=== PATIENT | female | born 1995 | race Caucasian/White ===

== ENCOUNTER 2017-03-26 20:34 | Observation (INO) | payer BC, OTHER ==
[~2017-03-26] VITALS: Ht 172.7 cm; Wt 111.1 kg
[2017-03-26] MEDS ORDERED: CAFFEINE/SODIUM BENZOATE 500 MG/2ML VIAL IV ONE (21:15)
[2017-03-26] MEDS ORDERED: TROKENDI PO (21:39)
[2017-03-26] MEDS ORDERED: [UNRECOGNIZED DRUG - OTHER] PO (21:39)
[2017-03-26] MEDS ORDERED: ADVAIR 100-501 EACH INH (21:39)
[2017-03-26] MEDS ORDERED: NARATRIPTAN HC2.5 MG PO (21:39)
[2017-03-26] MEDS ORDERED: ACETAZOLAMIDE250 MG PO (21:39)
[2017-03-26] MEDS: SODIUM CHLORIDE 0.9% 1000ML 1,000 ML IV SCH ×2 (21:47→22:31)
[2017-03-26] MEDS ORDERED: SODIUM CHLORIDE 0.9% 1000ML 1,000 ML IV SCH (23:29)
[2017-03-26] MEDS ORDERED: ONDANSETRON HCL INJ 2 MG/ML VIAL IV PRN (23:30)
[2017-03-26 23:51] LABS: BASOPHILS % 0.3 % (0.0-1.0); HEMATOCRIT 41.8 % (34.2-44.1); HEMOGLOBIN 14.4 g/dL (12.0-16.0); LYMPHOCYTES # (AUTO) 1.1 (1.0-3.2); LYMPHOCYTES % 9.8 % (18.0-39.1); MEAN CORPUSCULAR HEMOGLOBIN 30.3 pg (28-32); MEAN CORPUSCULAR HGB CONC 34.4 g/dL (31-35); MONOCYTES # (AUTO) 0.3 (0.2-0.8); MONOCYTES % 2.3 % (4.4-11.3); NEUTROPHILS # (AUTO) 9.9 (2.1-6.9); NEUTROPHILS % 87.3 % (38.7-80.0); PLATELET COUNT 283 x10e3/uL (140-360); RED BLOOD COUNT 4.75 x10e6/uL (3.6-5.1); RED CELL DISTRIBUTION WIDTH 12.5 % (11.7-14.4)
[2017-03-26 23:59] LABS: INR 0.98; PROTHROMBIN TIME 13.5 seconds (11.9-14.5)
[2017-03-27] VITALS (7 sets, daily range): BP systolic 91–124; BP diastolic 51–77
[2017-03-27] LABS: PARTIAL THROMBOPLASTIN TIME 28.5 seconds (23.8-35.5)
[2017-03-27 00:11] LABS: ANION GAP 10.9 mmol/L (8-16); BLOOD UREA NITROGEN 9 mg/dL (7-26); CALCIUM 8.7 mg/dL (8.4-10.2); CARBON DIOXIDE 19 mmol/L (22-29); CHLORIDE 113 mmol/L (98-107); GLUCOSE 101 mg/dL (74-118); POTASSIUM 3.9 mmol/L (3.5-5.1); SODIUM 139 mmol/L (136-145)
[2017-03-27 00:28] LABS: BUN/CREATININE RATIO 11 (6-25); CREATININE, SERUM 0.82 mg/dL (0.57-1.11); EST GLOMERULAR FILTRATION RATE > 60 ML/MIN (60-)
[2017-03-27] MEDS: SALMETEROL/FLUTICASONE 100/50 INH SCH ×2 (07:00→17:00)
[2017-03-27] MEDS: ACETAZOLAMIDE 250 MG TAB PO SCH ×2 (09:00→17:22)
--- NOTE | 2017-03-27 09:44 | History and Physical ---
This 21-year-old female comes in with headache. HISTORY OF PRESENT ILLNESS: Ms. Teague came in with intractable headache. She had a recent spinal tap and was found to have pseudotumor cerebri. The patient's headache is characterized as increased on getting up and walking after the spinal tap. The patient also complains of some nausea along with that. PAST MEDICAL HISTORY: History of recurrent headaches, which were gone for about the last 4 years and then recently started. That is why the spinal tap was ordered. The patient also went to an motor vehicle field representative who found her discs to be very enlarged and was recently diagnosed with pseudotumor cerebri. Otherwise, medical history of allergies. SURGICAL HISTORY: Noncontributory. SOCIAL HISTORY: No EtOH. No IV drug abuse. FAMILY HISTORY: Positive for history of pseudotumor cerebri in mother. REVIEW OF SYSTEMS: Negative for chest pain or shortness of breath. Positive for nausea. No vomiting. No diarrhea. No constipation. No rectal bleeding, hematochezia or hematemesis. Positive for headaches and positive for blurry vision. No diplopia. PHYSICAL EXAMINATION GENERAL: Alert and oriented times 3. VITALS: 98.4, pulse 72, respiratory rate 17, blood pressure 91/51. HEENT: Normocephalic and atraumatic. The pupils react to light and accommodation. CV: S1 and S2 normal, regular rate and rhythm. ABDOMEN: Nontender and nondistended. EXTREMITIES: No clubbing. No cyanosis. No edema. LABS: Everything normal, except for white count 11.3. IMAGING: Done on 02/04/2017 previous one was a normal MRI. ASSESSMENT: Spinal headache, status post spinal tap. Consult anesthesia for probable blood patch. The patient has been given the option of waiting it out for 1 to 2 weeks and resting or a blood patch. She will let us know. For right now, we will continue with all the medications that she is on including Diamox. Further recommendations per the clinical course. Job#: [id number]
[2017-03-27] MEDS: MORPHINE SULFATE 2 MG/ML SYR IV PRN ×2 (22:30)
[2017-03-28] VITALS: BP 106/54
[2017-03-28 04:00] VITALS: BP 105/59
[2017-03-28 07:41] VITALS: BP 102/61
[2017-03-28] MEDS: ACETAZOLAMIDE 250 MG TAB PO SCH (08:29)
[2017-03-28 11:28] VITALS: BP 112/67
[2017-03-28] MEDS ORDERED: FENTANYL CITRATE/PF 100MCG/2 ML INJ ONE (12:35)
[2017-03-28] MEDS ORDERED: SODIUM CHLORIDE 0.9% 500ML 500 ML ONE (12:35)
[2017-03-28] MEDS ORDERED: MIDAZOLAM HCL 2 MG/2 ML VIAL ONE (12:35)
[2017-03-28] MEDS ORDERED: LIDOCAINE HCL 2% LOCAL 20 ML VIAL ONE (12:35)
[2017-03-28] MEDS ORDERED: SODIUM CHLORIDE 0.9% 250ML 250 ML ONE (13:35)
[2017-03-28 15:20] VITALS: BP 121/58
--- NOTE | 2017-04-01 13:50 | Diagnostic Imaging Report ---
History: Spinal headache following lumbar puncture Comparison studies: None. Technique: scarf and anneal operator:Dr. Delfin Roque M.D. The procedure was explained to the patient in detail including complications. After consent was obtained, the patient was transferred to the fluoroscopy suite and asked to lie in the prone position. The skin in the lower back was prepped and draped in the usual sterile fashion with an iodine solution. The iodine was allowed to remain on the skin for a few minutes. A 25G needle was used to infiltrate the skin and subcutaneous soft tissues with 1% Xylocaine. Under fluoroscopic guidance, a 20 gauge Toughy needle was then advanced into the epidural space at the L4-L5 level without complications. Once the position of the needle was verified, 19cc of patients own blood were injected without complications. Sedation: None. Fluoroscopy time: 0.1 minutes. Following the procedure, the patient was transferred to the Radiology recovery for observation. The patient was discharged from the radiology department following adequate nursing supervision. She reports immediate relief of headache following the procedure. Once discharged she was instructed to remain in the supine position for the rest of the day, to avoid excessive straining, bending or carrying heavy objects, to contact the Radiology department or return to the emergency department in case of fever, increasing low back pain or persistent intractable headache. She was instructed to resume regular diet. She was encouraged not to do any heavy lifting through the remainder of the week and to return activity to normal as tolerated. Impression: Technically successful fluoroscopically guided epidural blood patch. Signed by: Dr. Delfin Roque M.D. on 03/28/2017 5:54 PM
== END 2017-03-28 15:44 | disposition home or self-care (01) ==
LOC: ER 20:34 → ERHOLD 03-27 00:11 → IMCU 03-27 00:19
PROVIDERS: ADMIT Family Medicine; ATTEND Family Medicine
DX: G97.1 Other reaction to spinal and lumbar puncture (principal); Y84.4 Aspiration of fluid as the cause of abnormal reaction of the patient, or of later complication, without mention of misadventure at the time of the procedure; G93.2 Benign intracranial hypertension; Z88.0 Allergy status to penicillin
CPT/HCPCS: 36415 ×2; 62273; 77002; 80048; 84702; 85025; 85610; 85730; 99284; G0378 ×2; J0706; J2001; J2270; J7030; J7040; J7050; J2250